=== PATIENT | male | born 1965 | race Caucasian/White ===

== ENCOUNTER 2018-09-27 14:29 | Emergency (ER) | payer OTHER ==
--- NOTE | 2018-09-27 14:40 | EDPHY ---
H & P Time Seen by Provider: 09/27/18 14:33 HPI/ROS: CHIEF COMPLAINT: Intoxication HISTORY OF PRESENT ILLNESS: The patient is a 53-year-old man who comes to the emergency department after being found down intoxicated while skiing. He admits to having several beers. He was found lying on the snow. He states that he did fall to his hip but denies any significant pain or injury. He denies hitting his head or having neck pain. He was placed in a cervical collar by ski lift operator and [place] ambulance [place] and brought him to the ER. The patient's only complaint is feeling dizzy and states that he could not stand up on scene because he felt dizzy. He denies, ingestants. He is moving all extremities. He was not found next to a tree or with any obvious trauma. Severity: Moderate Modifying factors: None REVIEW OF SYSTEMS: Constitutional: denies: chills, fever, recent illness, recent injury EENTM: denies: blurred vision, double vision, nose congestion Respiratory: denies: cough, shortness of breath Cardiac: denies: chest pain, irregular heart rate, lightheadedness, palpitations Gastrointestinal/Abdominal: denies: abdominal pain, diarrhea, nausea, vomiting, blood streaked stools Genitourinary: denies: dysuria, frequency, hematuria, pain Musculoskeletal: denies: joint pain, muscle pain Skin: denies: lesions, rash, jaundice, bruising Neurological: See HPI denies: headache, numbness, paresthesia, tingling, weakness Hematologic/Lymphatic: denies: blood clots, easy bleeding, easy bruising Immunologic/allergic: denies: HIV/AIDS, transplant 10 systems reviewed and negative except as noted EXAM: GENERAL: Well-appearing, well-nourished and in no acute distress. HEAD: Atraumatic, normocephalic. EYES: Pupils equal round and reactive to light, extraocular movements intact, sclera anicteric, conjunctiva are normal. ENT: TMs normal, nares patent, oropharynx clear without exudates. Moist mucous membranes. NECK: Normal range of motion, supple without lymphadenopathy or JVD. LUNGS: Breath sounds clear to auscultation bilaterally and equal. No wheezes rales or rhonchi. HEART: Regular rate and rhythm without murmurs, rubs or gallops. ABDOMEN: Soft, nontender, normoactive bowel sounds. No guarding, no rebound. No masses appreciated. BACK: No CVA tenderness, no spinal tenderness, step-offs or deformities EXTREMITIES: Normal range of motion, no pitting or edema. No clubbing or cyanosis. NEUROLOGICAL: Cranial nerves II through XII grossly intact. Normal speech, normal gait. 5/5 strength, normal movement in all extremities, normal sensation , normal reflexes PSYCH: Normal mood, normal affect. SKIN: Warm, dry, normal turgor, no visible rashes or lesions. Source: Patient, EMS Exam Limitations: Intoxication - Medical/Surgical History Hx Asthma: No Hx Chronic Respiratory Disease: No Hx Diabetes: No Hx Cardiac Disease: No Hx Renal Disease: No Hx Cirrhosis: No Hx Alcoholism: No Hx HIV/AIDS: No - Family History Significant Family History: No pertinent family hx - Social History Alcohol Use: Occasionally Constitutional: Initial Vital Signs Temperature (C) 36.9 C 09/27/18 14:29 Heart Rate 128 H 09/27/18 14:29 Respiratory Rate 18 09/27/18 14:29 Blood Pressure 153/96 H 09/27/18 14:29 O2 Sat (%) 93 09/27/18 14:29 O2 Delivery Mode Room Air O2 (L/minute) 2 Allergies/Adverse Reactions: No Known Allergies Allergy (Unverified 09/27/18 14:38) Home Medications: Medication Instructions Recorded Albuterol 09/27/18 Medical Decision Making ED Course/Re-evaluation: The patient's breathalyzer alcohol is 280. This is consistent with his presentation. No obvious injury or disability. No complaints of pain. We will observe. 3:40 p.m. the patient is ambulating. He is asking to leave. He has called a friend for ride. When the friend arrives we will discharge. Patient continues to deny any significant pain or injury. He states that he does have some pain in his left leg that has been somewhat of a tendinopathy that he is going to rehab for. He is not concerned about a new injury and declines x-rays. Differential Diagnosis: Partial list of the Differential diagnosis considered include but were not limited to; intoxication and although unlikely based on the history and physical exam, I also considered head injury, neck injury, infection. Departure - Departure Disposition: Home, Routine, Self-Care Clinical Impression: Alcohol intoxication Qualifiers: Complication of substance-induced condition: uncomplicated Qualified Code(s): F10.920 - Alcohol use, unspecified with intoxication, uncomplicated Condition: Fair Instructions: Alcohol Intoxication (ED) Referrals: Patient,NotPresent [Unknown] - As per Instructions Cheng Wadsworth MD [Medical Doctor] - As per Instructions
[2018-09-27 16:11] VITALS: BP 145/81
== END 2018-09-27 16:11 | disposition home or self-care (01) ==
LOC: EDUNIT#
DX: F10.920 Alcohol use, unspecified with intoxication, uncomplicated (principal)